=== PATIENT | female | born 1990 | race Caucasian/White ===

== ENCOUNTER 2017-07-10 03:08 | Emergency (ER) | payer SELFPAY ==
[~2017-07-10] VITALS: Ht 165.1 cm; Wt 57.6 kg
[2017-07-10] MEDS ORDERED: HYDROcodone-ACET 5/325MG TAB PO ONE (03:30)
[2017-07-10 05:10] VITALS: BP 106/47
== END 2017-07-10 05:33 | disposition home or self-care (01) ==
LOC: ER 03:15
DX: S09.90XA Unspecified injury of head, initial encounter (principal); M54.5 Low back pain; F10.120 Alcohol abuse with intoxication, uncomplicated; Y08.89XA Assault by other specified means, initial encounter; Y93.89 Activity, other specified; Y99.8 Other external cause status; Y92.89 Other specified places as the place of occurrence of the external cause
CPT/HCPCS: 70450; 72125; 72131